=== PATIENT | female | born 1945 | race Caucasian/White ===

== ENCOUNTER 2017-12-26 07:33 | Inpatient (IN) | payer MEDICARE ==
--- NOTE | 2017-12-20 17:41 | HP ---
AMENDED REPORT NOW INCLUDES COSIGNER DESIGNATION - ESIGNED BEFORE ADJUSTMENT HISTORY AND PHYSICAL: DATE OF ADMISSION/SURGERY: 12/26/17 DATE OF OFFICE VISIT: 12/20/17 SURGEON: Tiffani Escamilla MD * (DICTATED BY BETTYE OLGUIN) PROCEDURE: Right total knee arthroplasty. CHIEF COMPLAINT: Right knee pain. HISTORY OF PRESENT ILLNESS: Ms. Braswell is a 72-year-old female with end-stage osteoarthritis of the right knee. She has failed conservative management and elected to proceed with a right total knee arthroplasty. PAST MEDICAL HISTORY: GERD. PAST SURGICAL HISTORY: Septoplasty. CURRENT MEDICATIONS: 1. Aspirin 81 mg daily. 2. Calcium. 3. Vitamin D. 4. Omeprazole 20 mg as needed. ALLERGIES: PENICILLIN, CLARITHROMYCIN, CIPROFLOXACIN, and PANTOPRAZOLE. FAMILY HISTORY: Diabetes. SOCIAL HISTORY: She is a 72-year-old female. She lives with her . She does not smoke or use drugs. She uses alcohol rarely. REVIEW OF SYSTEMS: A complete 14-point review of systems was reviewed with the patient and it was positive for GERD. She denies history of DVT, PE, hepatitis C, HIV, or anesthesia problems. PHYSICAL EXAMINATION GENERAL: Well developed, well nourished, in no acute distress. VITAL SIGNS: She stands 5 feet 1 inch tall, weighs 130 pounds. Blood pressure 126/76, heart rate 72. HEENT: Normocephalic, atraumatic. NECK: Supple. No palpable lymph nodes. PULMONARY: Lungs are clear to auscultation bilaterally. CARDIO: Regular rate and rhythm. Strong S1 and S2. ABDOMEN: Soft, nontender, nondistended. NEUROLOGIC: Alert and oriented x3. Cranial nerves II through XII are intact. MUSCULOSKELETAL: Right lower extremity, the skin is intact. There are no open wounds or abrasions. She walks with antalgic type gait, favoring her right knee 5 to 125 degrees flexion with patellofemoral crepitus. No varus or valgus instability. She is distally neurovascularly intact. ASSESSMENT AND PLAN: Ms. Braswell is a 72-year-old female with end-stage osteoarthritis of the right knee. She has failed conservative management and elected to proceed with a right total knee arthroplasty, which is scheduled for 12/26/[address] Escamilla discussed the risks and benefits of the surgery at today's visit and all of her questions were answered. Percocet and Colace were sent to her pharmacy for postoperative pain control. She will be placed on aspirin 325 twice daily for DVT prophylaxis and she will see Dr. Escamilla back in 2 weeks after the surgery. BETTYE OLGUIN [id number]/[facility] #: [id number] [place]
[2017-12-26] MEDS ORDERED: Clindamycin 900 MG IVPREMIX(* 900 MG/50 ML SDV IV ONE (07:38)
[2017-12-26] MEDS ORDERED: Buffered Lidocaine 0.9% SYRIN* 5 ML/SYR SYRINGE ONE (07:58)
[2017-12-26] MEDS ORDERED: fentaNYL* 50 MCG/ML 2 ML VIAL (100 MCG VIAL) ONE (08:03)
[2017-12-26] MEDS ORDERED: Midazolam* 1 MG/ML 5 ML VIAL (5 MG) ONE (08:03)
[2017-12-26] MEDS ORDERED: Bupivacaine 0.5% SDV PF* 10-30ML VIAL ONE ×2 (09:05→09:58)
[2017-12-26] MEDS ORDERED: Morphine PF AMP (0.5MG/ML)* 5 MG/10 ML AMP ONE (09:47)
[2017-12-26] MEDS ORDERED: Propofol* 10 MG/ML 20 ML BTL IV PUSH ONE (09:57)
[2017-12-26] MEDS ORDERED: Polyethylene Glycol 3350* 17 GM PACKET PO PRN (10:47)
[2017-12-26] MEDS ORDERED: Acetaminophen TAB* 325 MG PO PRN (10:47)
[2017-12-26] MEDS ORDERED: Magnesium Hydroxide LIQ* 30 ML UDC PO PRN (10:47)
[2017-12-26] MEDS ORDERED: Bisacodyl SUPP* 10 MG SUPP PR PRN (10:47)
[2017-12-26] MEDS ORDERED: Naloxone* 0.4 MG/ML 1 ML VIAL IV PRN ×2 (11:01)
[2017-12-26] MEDS ORDERED: Ondansetron INJ* 2 MG/ML VIAL IV PRN (11:01)
[2017-12-26] MEDS ORDERED: Metoclopramide IV* 5 MG/ML 2 ML VIAL IV PRN (11:01)
[2017-12-26] MEDS ORDERED: diPHENhydraMINE IV* 50 MG/ML 1 ml VIAL (BENADRYL) IV PRN (11:01)
[2017-12-26] MEDS ORDERED: HYDROcodone/ACETAMIN 5-325 MG* 1 TAB PO PRN (11:01)
[2017-12-26] MEDS ORDERED: Nalbuphine* 20 MG/ML 1 ML VIAL IV PRN ×3 (11:01)
[2017-12-26] MEDS ORDERED: HYDROmorphone INJ* 1 MG/ML CARPUJECT SYRINGE IV PRN (11:01)
[2017-12-26] MEDS ORDERED: PROCHLORPERAZINE INJ 5 MG/ML 2 ML VIAL IV PRN (11:01)
[2017-12-26] MEDS ORDERED: EPHEDrine (Pressors)* 50 MG/ML VIAL ONE (11:55)
[2017-12-26] MEDS ORDERED: Ondansetron INJ* 2 MG/ML VIAL ONE ×2 (11:55→14:11)
--- NOTE | 2017-12-26 14:17 | RAD ---
Indication: Right total knee replacement. 3 views of the right knee demonstrates bipolar right knee arthroplasty in satisfactory position. IMPRESSION: Right knee arthroplasty in satisfactory position.
[2017-12-26] MEDS: PROCHLORPERAZINE INJ 5 MG/ML 2 ML VIAL IV PRN ×2 (16:19→23:34)
[2017-12-26] MEDS ORDERED: Warfarin TAB(*) 6 MG PO ONE (17:00)
[2017-12-26] MEDS: Clindamycin 600 MG IVPREMIX(* 600 MG/50 ML SDV IV SCH (17:29)
[2017-12-26] MEDS: HYDROcodone/ACETAMIN 5-325 MG* 1 TAB PO PRN ×2 (18:25→23:44)
[2017-12-26] MEDS: Docusate CAP* 100 MG PO SCH (19:55)
[2017-12-26] MEDS: Magnesium Hydroxide LIQ* 30 ML UDC PO SCH (19:57)
[2017-12-27] MEDS ORDERED: Morphine INJ* 2 MG/ML 1 ML CARPUJECT IV PRN (02:01)
[2017-12-27] MEDS ORDERED: diPHENhydraMINE IV* 50 MG/ML 1 ml VIAL (BENADRYL) IV PRN (02:01)
[2017-12-27] MEDS: Clindamycin 600 MG IVPREMIX(* 600 MG/50 ML SDV IV SCH ×2 (02:16→09:55)
[2017-12-27] MEDS ORDERED: Ondansetron INJ* 2 MG/ML VIAL IV PRN (03:01)
[2017-12-27] MEDS ORDERED: oxyCODONE TAB* 5 MG TAB PO PRN (03:01)
[2017-12-27] MEDS ORDERED: Ondansetron TAB* 4 MG PO PRN (03:01)
[2017-12-27] MEDS ORDERED: oxyCODONE/Acetamin 5/325 MG* TAB PO PRN (03:01)
[2017-12-27] MEDS: oxyCODONE/Acetamin 5/325 MG* TAB PO PRN ×4 (05:37→21:49)
[2017-12-27 06:00] LABS: Hematocrit 29 % (35-47); Hemoglobin 9.9 g/dl (12.0-16.0); Mean Platelet Volume 9 um3 (7.4-10.4); Platelet Count 124 10^3/ul (150-450)
[2017-12-27 06:16] LABS: EGFR Non-African American 76.9 (>60)
[2017-12-27] MEDS: Cyclobenzaprine TAB* 10 MG PO PRN ×2 (08:01→19:31)
[2017-12-27] MEDS: Docusate CAP* 100 MG PO SCH ×2 (09:51→21:48)
[2017-12-27] MEDS: Magnesium Hydroxide LIQ* 30 ML UDC PO SCH ×2 (09:51→21:48)
[2017-12-27] MEDS: Enoxaparin(*) 30 MG/0.3 ML SYR SUBCUT SCH (11:45)
--- NOTE | 2017-12-27 13:51 | PN ---
Progress Note - Progress Note Date of Service: 12/27/17 SOAP: Subjective: 72 yo female, PO day 1 s/p right TKA. She is seen OOB sitting in chair. She reports most of her pain is in her low back, pain is 7/10 in back. She just had dose of pain medications. Had some lightheadedness with PT and overnight, resolved now. Denies any SOB, CP, numbness, tingling, calf pain. Objective: Laboratory Results - last 24 hr 12/27/17 12/27/17 05:28 05:28 Hgb 9.9 L Hct 29 L Plt Count 124 L MPV 9 Sodium 137 Potassium 4.0 Chloride 106 Carbon Dioxide 27 Anion Gap 4 BUN 10 Creatinine 0.74 Est GFR ( Amer) 98.9 Est GFR (Non-Af Amer) 76.9 BUN/Creatinine Ratio 13.5 Glucose 123 H Calcium 8.3 L Vital Signs Temp 98.6 F 12/27/17 11:20 Pulse 67 12/27/17 11:20 Resp 18 12/27/17 11:47 BP 120/70 12/27/17 13:21 Pulse Ox 97 12/27/17 11:20 Intake & Output 12/26/17 12/27/17 12/27/17 18:59 06:59 18:59 Intake Total 2600 1036 333 Output Total 1300 1025 Balance 1300 11 333 Weight 131 lb Intake: IV Fluids 2600 990 LR 990 lr 2600 IVPB 46 333 LR 46 333 Oral 0 Output: Urine 0 Garcia 1150 925 Emesis 100 Estimated Blood Loss 150 General: WN, WD, NAD, A&Ox3, normal mood and affect. RLE: Dressing C/D/I, no drain in place. Able to DF/PF ankle, move toes. Calf and thigh soft, non-tender. 2+ DP pulse. Sensation intact distally. Assessment: 72 yo female POD 1 SP right TKA. Stable. Plan: 1. Continue PT/OT 2. Continue ASA 325 BID for DVT prophylaxis 3. WBAT 4. Discharge tomorrow if safe from PT perspective.
[2017-12-27] MEDS ORDERED: Warfarin TAB(*) 3 MG PO ONE (17:00)
--- NOTE | 2017-12-28 05:11 | OP ---
OPERATIVE REPORT: DATE OF OPERATION: 12/26/17 DATE OF : 43 ATTENDING SURGEON: Tiffani Escamilla MD FURNITURE MOVER: BETTYE Enamorado Mr. Mazariegos did help throughout the procedure with preparation of the leg, wound retraction, manipulat ion of the knee, and wound closure. ANESTHESIOLOGIST: Dr. Wong. ANESTHESIA: Spinal. PRE-OP DIAGNOSIS: Severe end-stage degenerative osteoarthritis of the right knee joint. POST-OP DIAGNOSIS: Severe end-stage degenerative osteoarthritis of the right knee joint. OPERATIVE PROCEDURE: Right total knee arthroplasty. TOURNIQUET TIME: 44 minutes. COMPLICATIONS: None. ESTIMATED BLOOD LOSS: 200 cc. HARDWARE USED: This is cemented [employer] total knee arthroplasty hardware. Two packages of S implex bone cement. For the femur, a size 3, narrow posterior stabilized right Legion femoral compon ent. For the tibia, size 2 right, tibial base plate [place] II. For the insert, a 9-mm posterior s tabilized articular insert, size 1/2 and for the patella, a 26 mm 7.5 thickness 3-peg all poly patell a. BRIEF HISTORY/INDICATION: Ms. Braswell is a 72-year-old female with years of increasingly severe right knee pain. She failed conservative treatment with anti- inflammatories, pain medications, intraartic ular injections, and physical therapy. Radiograph showed [id number] arthritis. Due to continued pa in and decreased quality of life, patient elected to undergo right total knee arthroplasty. Informed consent was obtained from the patient. She understood the risks of the procedure included, but were not limited to, bleeding, infection, damage to nearby structures, continued pain, need for further sky rgery, intraoperative fracture, nerve palsy, hardware failure or loosening, knee stiffness, loss of m otion, stroke, heart attack, blood clot, and . She wished to proceed. INTRAOPERATIVE FINDINGS: Intraoperatively, the patient was noted to have severe loss of cartilage in all 3 compartments. DESCRIPTION OF PROCEDURE: Ms. Braswell was identified in the preanesthesia unit. Her right lower extre mity was marked as the correct operative side. Informed consent was signed and placed in the chart. The patient was taken to the operating room and placed under spinal anesthesia without difficulty. A Garcia catheter was placed. Tourniquet was placed on the right thigh. Right lower extremity was p repped and draped in the usual sterile fashion. Preop time-out was made to once again correctly iden tify the patient, side and site. Appropriate perioperative antibiotics were given within 1 hour of i ncision. Tourniquet was inflated and total tourniquet time for this procedure was 44 minutes. A midline incis ion was made of 12-cm with a 10-blade and carried down to the extensor mechanism. New 10-blade was u sed to make a standard medial parapatellar arthrotomy. The patella was subluxed laterally. Electroc autery was used to subperiosteally elevate soft tissue off the superomedial tibia to the mid sagittal plane. The knee was flexed up. The anterior horn of the lateral meniscus and ACL were sharply rele ased. A drill was used to enter the distal femur. Intramedullary distal femoral cutting guide was pi nned on the distal femur. Oscillating saw was used to make the distal femoral cut. Next, the externa l rotation guide was pinned on the distal femur and the distal femur was sized to a size 3. A size 3 multi-cutting jig was pinned on the distal femur. Oscillating saw was used to make the appropriate chamfer cuts. The PCL was completely released. Tibia was subluxed anteriorly. Extramedullary tibial cutting guide was pinned on the proximal tibia. Oscillating saw was used to the make the proximal tibial cut perp endicular to the mechanical axis of the tibia. The bone was carefully removed. The knee was brought out into full extension. A spacer block had good fit. Medial and lateral ligaments were well balanc ed. Flexion and extension gap was well balanced. The knee was flexed up. Lamina time study technologist was placed both medially and laterally. Any remaining meniscus was carefully removed using electrocautery. P osterior osteophytes were removed with a curette and curved osteotome. Tibial tray and drop juan were once again placed to confirm satisfactory cut of the tibia. This was confirmed. A trial right size 3 narrow femur was impacted onto the distal femur and had excellent stability. Th e box for the posterior stabilized implant was prepared using a reamer and box cut osteotome. A size 2 tibial tray trial with a 9-mm insert trial was placed and the knee was taken through a range of mo tion. The knee had full extension to 130 degrees of flexion with satisfactory patellofemoral trackin g. The jaw was everted. 7 mm of patellar bone and cartilage was removed with an oscillating saw. P atella was sized to size 26. A 26 trial with 7.5 thickness was chosen and placed on the patella. Th e knee was taken through a range of motion. Patellofemoral tracking was satisfactory. All trials were carefully removed. The tibia was subluxed anteriorly and sized to a size 2. Proxima l tibia was prepared using a size 2 keel punch. All bony cut surfaces were copiously irrigated with sterile saline and dried. Final implants were cemented into place starting with the tibia, followed by the femur and last the patella. A 9 mm insert trial was placed while the knee was brought out int o full extension. Tourniquet was turned down. The knee was copiously irrigated with sterile saline. Once the cement had fully cured, the insert trial was removed. Any excess cement was removed from a round the capsule and hardware. Final insert chosen was a 9-mm posterior stabilized articular insert , size 1/2. This was locked in position on the tibial tray. Stability of the insert was checked and rechecked and noted to be stable. The extensor mechanism was closed using interrupted #1 Vicryl. The rest of the incision was closed i n a layered fashion using 0 and 2-0 Vicryl. The skin was closed using running 3-0 nylon suture. Ned rile Xeroform, 4 x 4s, and Webril were placed over the incision. Tristan wrap and cold pack were placed over this. The patient's anesthesia was reversed without difficulty. She was taken to the PACU in s table condition. Intended weightbearing is weightbearing as tolerated. Intended DVT prophylaxis satish l be Coumadin with a Lovenox bridge. [id number]/[facility] #: [id number]
[2017-12-28 05:43] LABS: Hematocrit 27 % (35-47); Hemoglobin 9.1 g/dl (12.0-16.0); Mean Platelet Volume 9 um3 (7.4-10.4); Platelet Count 111 10^3/ul (150-450)
[2017-12-28 05:56] LABS: INR 1.1 (0.77-1.02)
[2017-12-28] MEDS: oxyCODONE/Acetamin 5/325 MG* TAB PO PRN ×2 (07:19→15:46)
[2017-12-28] MEDS: Docusate CAP* 100 MG PO SCH ×2 (08:14→20:33)
[2017-12-28] MEDS: Magnesium Hydroxide LIQ* 30 ML UDC PO SCH ×2 (08:14→20:33)
[2017-12-28] MEDS: Aspirin TAB* 325 MG PO SCH ×2 (08:14→20:33)
--- NOTE | 2017-12-28 09:09 | PN ---
Progress Note - Progress Note Date of Service: 12/28/17 SOAP: Subjective: POD #2 Right TKA, doing ok. Having increased pain today, does not think she can go home. Denies CP/SOB, calf pain, f/c. Objective: Vitals: Temp Pulse Resp BP Pulse Ox 99.3 F 98 12 129/57 95 12/28/17 07:36 12/28/17 07:36 12/28/17 07:36 12/28/17 07:36 12/28/17 07:36 Gen: A&Ox3, NAD at rest sitting in chair RLE: Incision C/D/I with sutures, mild edema, no ecchymosis or hematoma. Calf soft, NT. +f/e at ankle and MTPs, N/V intact Labs: Laboratory Results - last 24 hr 12/28/17 12/28/17 05:12 05:12 Hgb 9.1 L Hct 27 L Plt Count 111 L MPV 9 INR (Anticoag Therapy) 1.10 H Assessment: POD #2 Right TKA Plan: Cont ASA 325mg BID for DVT ppx Cont PT/OT D/C home tomorrow
[2017-12-28] MEDS: Enoxaparin(*) 30 MG/0.3 ML SYR SUBCUT SCH (11:10)
[2017-12-29 05:44] LABS: Hematocrit 23 % (35-47); Hemoglobin 7.9 g/dl (12.0-16.0); Mean Platelet Volume 8 um3 (7.4-10.4); Platelet Count 98 10^3/ul (150-450)
[2017-12-29] MEDS: oxyCODONE/Acetamin 5/325 MG* TAB PO PRN ×2 (08:21→12:41)
[2017-12-29] MEDS: Aspirin TAB* 325 MG PO SCH (08:21)
[2017-12-29] MEDS: Docusate CAP* 100 MG PO SCH (08:21)
[2017-12-29] MEDS: Magnesium Hydroxide LIQ* 30 ML UDC PO SCH (08:22)
--- NOTE | 2017-12-29 10:41 | PN ---
Progress Note - Progress Note Date of Service: 12/29/17 SOAP: Subjective: POD #3 Right TKA, doing well. Ready for d/c home today. Denies CP/SOB, f/c, calf pain or swelling. Objective: Vitals: Temp Pulse Resp BP Pulse Ox 98.2 F 95 16 123/49 95 /02/12 07:36 /18 07:36 12/29/17 08:21 12/29/17 07:36 12/29/17 08:20 Gen: A&Ox3, NAD at rest RLE: Dressing C/D/I. +f/e at ankle and MTPs, N/V intact Labs: Laboratory Results - last 24 hr 12/29/17 05:10 Hgb 7.9 L Hct 23 L Plt Count 98 L MPV 8 Assessment: POD #3 Right TKA Plan: D/C home today VNS for home wound care/PT ASA 325mg BID F/u with Dr. Escamilla 10-14 days
[2017-12-29 12:09] VITALS: BP 107/44
[2017-12-29] MEDS: Enoxaparin(*) 30 MG/0.3 ML SYR SUBCUT SCH (12:13)
--- NOTE | 2017-12-30 01:09 | DS ---
DISCHARGE SUMMARY: DATE OF ADMISSION: 12/26/17 DATE OF DISCHARGE: 12/29/17 PROVIDER: Dr. Tiffani Escamilla* (dictated by BETTYE Rocha). ADMITTING DIAGNOSIS: Severe end-stage osteoarthritis of the right knee. DISCHARGE DIAGNOSIS: Severe end-stage osteoarthritis of the right knee, status post right total knee arthroplasty. SECONDARY DIAGNOSIS: Gastroesophageal reflux disease. HISTORY OF PRESENT ILLNESS: Ms. Braswell is a 72-year-old female, who has had ongoing troubles with the right knee and failed conservative management. She elected to proceed with a right total knee arthroplasty. HOSPITAL COURSE: On 12/26/17, the patient was admitted to [facility] and underwent a successful right total knee arthroplasty by Dr. Escamilla. She recovered briefly in the postanesthesia care unit and was transferred to the short- stay surgical unit in stable condition. On postop day 1, the patient 's pain was controlled with oral pain medication. She was able to participate with physical therapy and ambulate with the use of a rolling walker. She had some acute blood loss anemia with an H and H of 9.9 and 29, INR 1.1. Garcia was removed and Hemovac was also removed on postop day #1 without complications. On postop day 2, the patient was again able to participate with physical therapy and pain was controlled with oral pain medication. She continued to have acute blood loss anemia with H and H of 9.1 and 27. She was switched over to aspirin 325 mg b.i.d. and taken off Coumadin. On postop day #3, she was found stable for discharge home. She did have a slight drop in her H and H as well as 7.9 and 23. The patient is asymptomatic. Denies any dizziness, lightheadedness, chest pain, or shortness of breath. DISCHARGE INSTRUCTIONS: The patient will be weightbearing as tolerated with the use of a rolling walker. She will have home physical therapy and visiting nurse services for wound checks. She will keep the dressing dry until postop day 4. She will then shower normally after that and apply a dry dressing as needed. She will follow up in the office 10 to [address] Escamilla. She is understanding not to submerge her wound in a bath tub, hot tub or swimming pool. She is understanding to call the office with any problems or concerns to go directly to the emergency room with any chest pain, shortness of breath, fever greater than 101.5, calf pain or swelling. DISCHARGE MEDICATIONS: The patient will have: 1. Percocet 5/325 one to two tabs p.o. q.4 to 6 hours p.r.n. pain. 2. Colace 100 mg p.o. b.i.d. 3. Aspirin 325 mg p.o. b.i.d. She will resume her home medications omeprazole 20 mg p.o. every day, calcium citrate/vitamin D3 one tablet p.o. every day. All of her questions were answered to her full satisfaction. BETTYE ROCHA [id number]/[facility] #: [id number] MTDD
== END 2017-12-29 13:35 | disposition home health service (06) | DRG 470 ==
LOC: AA 07:33 → SSU 14:21
PROVIDERS: ADMIT Orthopaedic Surgery Adult Reconstructive Orthopaedic Surgery; ATTEND Orthopaedic Surgery Adult Reconstructive Orthopaedic Surgery
PROC: 0SRC0J9 Replacement of Right Knee Joint with Synthetic Substitute, Cemented, Open Approach (ICD-10-PCS; principal; 2017-12-26 10:00)
DX: M17.11 Unilateral primary osteoarthritis, right knee (principal); D62 Acute posthemorrhagic anemia; M25.761 Osteophyte, right knee; K21.9 Gastro-esophageal reflux disease without esophagitis; Z79.82 Long term (current) use of aspirin; Z79.899 Other long term (current) drug therapy; Z88.1 Allergy status to other antibiotic agents; Z88.0 Allergy status to penicillin; Z88.8 Allergy status to other drugs, medicaments and biological substances; Z83.3 Family history of diabetes mellitus
CPT/HCPCS: 36415; 80048; 85014; 85018; 85049; 85610; 88305; 88311; A9270-GY; C1776; J0780; J1650; J2250; J2405; J2704; J3010

== ENCOUNTER 2018-01-03 12:21 | Emergency (ER) | payer MEDICARE ==
--- NOTE | 2018-01-03 14:08 | RAD ---
INDICATION: Right lower extremity pain and swelling evaluate for deep venous thrombosis. COMPARISON: There are no prior studies available for comparison. TECHNIQUE: Multiple real-time, color flow and Doppler tracings of the right lower extremity were obtained. FINDINGS: The common femoral, femoral, profunda femoral and popliteal veins all demonstrate normal compressibility, augmentation with compression and phasic response with respiration. The posterior tibial and peroneal veins demonstrate normal compressibility and augmentation with compression. IMPRESSION: NO EVIDENCE FOR DEEP VENOUS THROMBOSIS.
--- NOTE | 2018-01-03 14:46 | ED ---
Lower Extremity - HPI Summary HPI Summary: Patient is a 72-year-old female presenting to the ED with chief complaint of right calf pain 7 days status post total knee replacement surgery. She was sent in by her PT. Denies any erythema or warmth to the area. Denies any shortness of breath or chest pain. She is otherwise stable. Pain is rated a 5 out of 10 and is intermittent. Worse with ambulation, better with rest. - History of Current Complaint Chief Complaint: EDExtremityLower Stated Complaint: PAIN IN RT LEG Time Seen by Provider: 01/03/18 12:47 Hx Obtained From: Patient Onset of Pain: Immediate Onset/Duration: Hours Severity Initially: Mild Severity Currently: Mild Pain Intensity: 4 Pain Scale Used: 0-10 Numeric Location: Is Discrete @ - Right lower extremity Associated Signs And Symptoms: Negative: Swelling, Redness, Bruising Aggravating Factor(s): Standing, Ambulation Alleviating Factor(s): Rest Able to Bear Weight: No - Risk Factors Gout Risk Factors: Negative DVT Risk Factors: Recent Surgery, Recent Trauma Septic Arthritis Risk Factor: Negative - Allergies/Home Medications Allergies/Adverse Reactions: Allergies Allergy/AdvReac Type Severity Reaction Status Date / Time ciprofloxacin [From Cipro] Allergy Mild Leg Cramps Verified 12/26/17 07:52 pantoprazole Allergy Mild Rash Verified 12/26/17 07:52 Penicillins Allergy Mild Rash Verified 12/26/17 07:52 clarithromycin AdvReac Mild Nausea And Verified 12/26/17 07:52 Vomiting PMH/Surg Hx/FS Hx/Imm Hx Previously Healthy: Yes Cardiovascular History: Reports: Hx 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 7 GI History: Reports: Hx Gastroesophageal Reflux Disease Musculoskeletal History: Reports: Hx Arthritis - OSTEOARTHRITIS, Other Musculoskeletal History - PAIN IN RIGHT KNEE SINCE 06/13 Denies: Hx Rheumatoid Arthritis, Hx Osteoporosis Sensory History: Reports: Hx Contacts or Glasses - GLASSES Denies: Hx Cataracts, Hx Glaucoma, Hx Hearing Aid Opthamlomology History: Reports: Hx Contacts or Glasses - GLASSES Denies: Hx Cataracts, Hx Glaucoma Psychiatric History: Denies: Hx Anxiety, Hx Attention Deficit Hyperactivity Disorder, Hx Eating Disorder, Hx Depression, Hx Panic Disorder, Hx Post Traumatic Stress Disorder, Hx Inpatient Treatment, Hx Community Mental Health Tx, Hx Schizophrenia, Hx Bipolar Disorder, Hx Suicide Attempt, Hx of Violent Episodes Against Others, Hx Substance Abuse, Other Psychiatric Issues/Disorders - Cancer History Hx Chemotherapy: No Hx Radiation Therapy: No - Surgical History Surgery Procedure, Year, and Place: DEVIATED SEPTUM- 2009- [facility] Hx Anesthesia Reactions: Yes - SEVERE N/V POST OP, HAD TO BE ADMITTED OVERNIGHT - Immunization History Hx Pertussis Vaccination: No Immunizations Up to Date: Unable to Obtain/Confirm Infectious Disease History: No Infectious Disease History: Reports: Hx Shingles - 10 YRS AGO ON LEFT UPPER FACIAL AREA Denies: Hx Clostridium Difficile, Hx Hepatitis, Hx Human Immunodeficiency Virus (HIV), Hx Tuberculosis, History Other Infectious Disease, Traveled Outside the [place] in Last 30 Days - Family History Known Family History: Positive: Unknown - Social History Occupation: Unemployed Lives: With Family Alcohol Use: Rare Alcohol Amount: 2 DRINKS PER YEAR Hx Substance Use: No Substance Use Type: Reports: None Smoking Status (MU): Never Smoked Tobacco Have You Smoked in the Last Year: No Review of Systems Constitutional: Negative Negative: Fever, Chills, Fatigue, Skin Diaphoresis Eyes: Negative Cardiovascular: Negative Genitourinary: Negative Positive: no symptoms reported, see HPI Positive: Myalgia. Negative: Arthralgia, Decreased ROM, Edema Skin: Negative All Other Systems Reviewed And Are Negative: Yes Physical Exam Triage Information Reviewed: Yes Vital Signs On Initial Exam: Initial Vitals Temp Pulse Resp BP Pulse Ox 99.3 F 94 18 133/76 100 01/03/18 12:29 01/03/18 12:29 01/03/18 12:29 01/03/18 12:29 01/03/18 12:29 Vital Signs Reviewed: Yes Appearance: Positive: Well-Appearing, Well-Nourished Skin: Positive: Warm, Skin Color Reflects Adequate Perfusion Head/Face: Positive: Normal Head/Face Inspection Eyes: Positive: EOMI, SUZETTE, Conjunctiva Clear Neck: Positive: Supple, No Lymphadenopathy Respiratory/Lung Sounds: Positive: Clear to Auscultation, Breath Sounds Present Cardiovascular: Positive: RRR, Pulses are Symmetrical in both Upper and Lower Extremities Musculoskeletal: Positive: Pain @ - Right lower extremity Neurological: Positive: Speech Normal Psychiatric: Positive: Normal AVPU Assessment: Alert Diagnostics - Vital Signs Vital Signs Temp Pulse Resp BP Pulse Ox 01/03/18 12:29 99.3 F 94 18 133/76 100 - Laboratory Lab Statement: Any lab studies that have been ordered have been reviewed, and results considered in the medical decision making process. Lower Extremity Course/Dx - Course Course Of Treatment: During the course of treatment, the patient is evaluated for a possible DVT status post total knee replacement surgery from Dr. Escamilla one week ago. Ultrasound obtained which shows no evidence of a DVT. Patient is made aware and I have encouraged moist heat to the area. She is okay with this plan and will follow up with Dr. Escamilla in 3 days. - Diagnoses Provider Diagnoses: Right calf pain Discharge - Discharge Plan Condition: Stable Disposition: HOME Referrals: Tiffani Escamilla MD [Medical Doctor] - Ashley Anaya NP [Primary Care Provider] - Additional Instructions: Please follow-up with Dr. Escamilla on Saturday You may apply moist heat to the calf muscle for comfort If anything becomes worse, return to the ED or call ortho
[2018-01-03 14:57] VITALS: BP 129/54
== END 2018-01-03 14:55 | disposition home or self-care (01) ==
LOC: ED 12:21
DX: M79.661 Pain in right lower leg (principal); Z96.659 Presence of unspecified artificial knee joint; Z88.3 Allergy status to other anti-infective agents; Z88.0 Allergy status to penicillin; Z88.8 Allergy status to other drugs, medicaments and biological substances
CPT/HCPCS: 99281

== ENCOUNTER 2018-10-01 07:13 | Day surgery (SDC) | payer MEDICARE ==
[~2018-10-01 07:13] MED LIST: Acetaminophen TAB* 325 MG PO PRN; Buffered Lidocaine 0.9% SYRIN* 5 ML/SYR SYRINGE INTRADERM ONE
[2018-10-01] MEDS ORDERED: Midazolam* 1 MG/ML 2 ML VIAL (2 MG) ONE ×2 (09:33→09:44)
[2018-10-01 10:04] VITALS: BP 131/51
[2018-10-01] MEDS ORDERED: Neomycin/Polymy/Dex OPTH.SUSP* MAXITROL 0.1% 5 ML ONE (10:48)
[2018-10-01] MEDS ORDERED: acetaZOLAMIDE TAB* 250 MG ONE (10:48)
[2018-10-01] MEDS ORDERED: Cyclopentolate 1% OPTH.SOL* 2 ML BTL ONE (10:48)
[2018-10-01] MEDS ORDERED: Lidocaine 1%* 5 ML VIAL ONE (10:48)
[2018-10-01] MEDS ORDERED: Proparacaine 0.5% OPHTH.SOL* 15 ML BTL ONE (10:48)
[2018-10-01] MEDS ORDERED: Lidocaine 2% EPI 1:200000 MPF*10-20 ML VIAL ONE (10:48)
[2018-10-01] MEDS ORDERED: Ketorolac 0.5% OPHTH (NF) 0.5 % 5 ML BTL ONE (10:48)
[2018-10-01] MEDS ORDERED: Povidone Iodine 5% OPTH* 30 ML BTL ONE (10:48)
[2018-10-01] MEDS ORDERED: Phenylephrine 2.5% OPTH.SOL* 2 ML BTL ONE (10:48)
--- NOTE | 2018-10-01 11:40 | OP ---
OPERATIVE NOTE: DATE OF OPERATION: 10/01/18. DATE OF : 43. SURGEON: Yogesh Russell M.D. PREOPERATIVE DIAGNOSIS: Cataract right eye. POSTOPERATIVE DIAGNOSIS: Cataract right eye. OPERATIVE PROCEDURE: Extracapsular cataract extraction with intraocular lens implant right eye. PROCEDURE: The patient was brought to the operating room after being given 1/2% Alcaine with epineph rine drops in the preoperative area. The eye was prepped and draped in the usual sterile fashion. S terile drape and eyelid speculum were placed. Again, topical 1/2% Alcaine with epinephrine was given . A paracentesis incision was made at the 9 o'clock position with the No.75 blade. Clear cornea inc ision 2.2 x 2.2-mm was created at the 12 o'clock position starting at the anterior limbus using the 2 .2-mm keratome. The anterior chamber was irrigated with 0.4 mL of 1% non-preservative intracameral l idocaine and filled with DisCoVisc. A capsulorrhexis was completed using the cystotome and the Utrat a forceps. Hydrodissection was performed with balanced salt solution. The lens nucleus was removed w ith the Phacoemulsification handpiece without incident. Cortex was removed with the irrigation-aspir ation handpiece. The capsular bag was re-inflated using DisCoVisc and an [id number] 23.5 implant was ins erted with the shooter. The irrigation-aspiration handpiece was used to remove all residual DisCoVis c. The eye was refilled with balanced salt solution and the wound checked and found to be watertight . Topical Maxitrol drops were given. [id number]/[facility] #: [id number]
== END 2018-10-01 10:06 | disposition home or self-care (01) ==
LOC: OREAST 07:13
PROVIDERS: ATTEND Specialist
DX: H25.11 Age-related nuclear cataract, right eye (principal); K21.9 Gastro-esophageal reflux disease without esophagitis
CPT/HCPCS: A9270-GY; J2250; V2632

== ENCOUNTER 2018-10-08 08:05 | Day surgery (SDC) | payer MEDICARE ==
[~2018-10-08 08:05] MED LIST changes: +Cyclopentolate 1% OPTH.SOL* 2 ML BTL ONE; +Ketorolac 0.5% OPHTH (NF) 0.5 % 5 ML BTL ONE; +Lidocaine 1%* 5 ML VIAL ONE; +Lidocaine 2% EPI 1:200000 MPF*10-20 ML VIAL ONE; +Neomycin/Polymy/Dex OPTH.SUSP* MAXITROL 0.1% 5 ML ONE; +Phenylephrine 2.5% OPTH.SOL* 2 ML BTL ONE; +Povidone Iodine 5% OPTH* 30 ML BTL ONE; +Proparacaine 0.5% OPHTH.SOL* 15 ML BTL ONE; +acetaZOLAMIDE TAB* 250 MG ONE
[2018-10-08] MEDS ORDERED: Midazolam* 1 MG/ML 5 ML VIAL (5 MG) ONE (10:10)
[2018-10-08 11:04] VITALS: BP 119/73
--- NOTE | 2018-10-08 11:40 | OP ---
DATE OF OPERATION: 10/08/18 [facility] DATE OF : 43 SURGEON: Yogesh Russell M.D. PREOPERATIVE DIAGNOSIS: Cataract, left eye. POSTOPERATIVE DIAGNOSIS: Cataract, left eye. OPERATIVE PROCEDURE: Extracapsular cataract extraction with intraocular lens implant, left eye. DESCRIPTION OF PROCEDURE: The patient was brought to the operating room after being given 1/2% Alcaine with epinephrine drops in the preoperative area. The eye was prepped and draped in the usual sterile fashion. Sterile drape and eyelid speculum were placed. Again, topical 1/2% Alcaine with epinephrine was given. A paracentesis incision was made at the 3 o'clock position with the No.75 blade. Clear cornea incision 2.2 x 2.2-mm was created at the 6 o'clock position starting at the anterior limbus using the 2.2-mm keratome. The anterior chamber was irrigated with 0.4 mL of 1% non-preservative intracameral lidocaine and filled with DisCoVisc. A capsulorrhexis was completed using the cystotome and the Utrata forceps. Hydrodissection was performed with balanced salt solution. The lens nucleus was removed with the Phacoemulsification handpiece without incident. Cortex was removed with the irrigation-aspiration handpiece. The capsular bag was re-inflated using DisCoVisc and an SN60WF 24.5 implant was inserted with the shooter. The irrigation-aspiration handpiece was used to remove all residual DisCoVisc. The eye was refilled with balanced salt solution and the wound checked and found to be watertight. Topical Maxitrol drops were given. [id number]/[facility] #: [id number] MTDD
== END 2018-10-08 11:13 | disposition home or self-care (01) ==
LOC: OREAST 08:05
PROVIDERS: ATTEND Specialist
DX: Z01.818 Encounter for other preprocedural examination (principal); H25.12 Age-related nuclear cataract, left eye; Z96.1 Presence of intraocular lens
CPT/HCPCS: A9270-GY; J2250; V2632

== ENCOUNTER 2021-05-24 14:45 | Observation (INO) ==
[2021-05-24] MEDS ORDERED: NS 0.9% 1000 ml BAG 1,000 ML IV ONE (18:32)
[2021-05-24 19:02] LABS: Urine Appearance Clear; Urine Bilirubin Negative (Negative); Urine Blood 1+ (Negative); Urine Color Yellow; Urine Glucose Negative (Negative); Urine Ketones Negative (Negative); Urine Nitrite Negative (Negative); Urine Protein Negative (Negative); Urine Specific Gravity 1.015 (1.002-1.030); Urine Urobilinogen Negative (Negative)
[2021-05-24 19:17] LABS: Urine Bacteria Absent (Absent); Urine Red Blood Cell Trace(0-2/hpf) (Absent); Urine Squamous Epithelial Cell Present (Absent); Urine White Blood Cell Trace(0-5/hpf) (Absent)
[2021-05-24 19:34] LABS: ABS Lymphocytes 1.6 10^3/ul (1.0-4.8); ABS Monocytes 0.5 10^3/ul (0-0.8); ABS Neutrophils 5.1 10^3/ul (1.5-7.7); Eosinophil % 0.4 %; Hematocrit 43 % (35-47); Hemoglobin 14.5 g/dL (12.0-16.0); Lymphocyte % 22.5 %; Mean Corpuscular HGB Conc 34 g/dL (31-36); Mean Corpuscular Hemoglobin 31 pg (27-31); Mean Corpuscular Volume 93 fL (80-97); Mean Platelet Volume 8.2 fL (7.4-10.4); Platelet Count 154 10^3/uL (150-450); Red Blood Count 4.65 10^6 /uL (3.70-4.87); Red Cell Distribution Width 14 % (10-15); White Blood Count 7.3 10^3/uL (3.5-10.8)
[2021-05-24 19:57] LABS: Albumin/Globulin Ratio 1.5 (1-3); Calcium 9.2 mg/dL (8.6-10.3); EGFR African American 71.8 (>60); EGFR Non-African American 59.4 (>60); Globulin 2.6 g/dL (2-4); Potassium 3.9 mmol/L (3.5-5.0); Total Bilirubin 0.5 mg/dL (0.2-1.0); Total Protein 6.6 g/dL (6.4-8.9)
[2021-05-24 21:33] LABS: TSH Ultra Thyroid Stim Horm 0.65 mcIU/mL (0.34-5.60)
[2021-05-25] MEDS: Enoxaparin 40 MG/0.4 ML SYR SUBCUT SCH ×2 (05:10→05:12)
[2021-05-25] MEDS ORDERED: Aspirin EC 81 mg TAB.EC (enteric coated) PO SCH (09:00)
[2021-05-25 11:38] VITALS: BP 149/62
== END 2021-05-25 13:30 | disposition home or self-care (01) ==
LOC: ED 14:45 → MED 14:45
PROVIDERS: ADMIT Internal Medicine; ATTEND Internal Medicine